=== PATIENT | male | born 1970 | race Caucasian/White ===

== ENCOUNTER 2023-10-08 14:54 | Outpatient (CLI) | payer BC, SELFPAY ==
--- NOTE | 2023-10-08 15:00 | CT_ITS ---
Patient: LAURIE SEGURA Facility:?[facility] Patient ID:?[id number] Site Patient ID:?[id number]. Site :?[id number] Study:?CT-Sinus W/O-10/08/2023 3:17:05 PM Ordering Physician:SONAM Final Report: INDICATION: Chronic sinusitis. TECHNIQUE: Noncontrast CT images of the paranasal sinuses. COMPARISON: None. FINDINGS: Postsurgical changes of endoscopic sinus surgery including bilateral maxillary antrostomy, bilateral uncinectomy, and bilateral partial ethmoidectomy. No air- fluid levels to suggest acute sinusitis. Mild to moderate lobulated mucosal thickening within the maxillary sinuses. The right maxillary sinus is hypoplastic. The maxillary sinus outflow tracts are patent. Severe opacification of the frontal recesses. There is otherwise mild mucosal thickening in the frontal sinuses. Moderate mucosal thickening in the residual ethmoid air cells. Mild mucosal thickening in the sphenoid sinuses. The sphenoethmoidal recesses are opacified. There is 5 mm rightward nasal septal deviation. Tubular opacities within the mid to superior nasal cavity bilaterally, larger on the left. The mastoid air cells are clear. IMPRESSION 1. Tubular opacities within the mid to superior nasal cavity bilaterally, larger on the left. Findings are concerning for underlying polyposis. Direct visualization is recommended for further assessment. 2. Severe opacification of the frontal recesses. There is otherwise mild to moderate paranasal sinus mucosal disease. 3. Rightward nasal septal deviation. Please note that all CT scans at this facility use dose modulation, iterative reconstruction, and/or weight-based dosing when appropriate to reduce radiation dose to as low as reasonably achievable. Dictated by Moiz Gastelum MD @ 10/10/2023 6:43:05 AM Signed by:?Moiz Gastelum MD @10/10/2023 6:43:05 AM (Electronic Signature)
== END 2023-10-08 14:55 | disposition home or self-care (01) ==
LOC: CT 14:57
PROVIDERS: Visit Provider Otolaryngology
DX: J32.9 Chronic sinusitis, unspecified (principal); J34.2 Deviated nasal septum
CPT/HCPCS: 70486

== ENCOUNTER 2024-05-06 10:01 | Day surgery (SDC) | payer BC, SELFPAY ==
[2024-05-06] VITALS (13 sets, daily range): BP systolic 122–148; BP diastolic 82–95; PULSE 55–70; RESP 16–20; TEMP 36.3–36.8; O2SAT 92–98; BMI 23.5
[2024-05-06] MEDS: LACTATED RINGERS 1000 ML 1,000 ML 100 ML IV (10:15)
[2024-05-06] MEDS: OXYMETAZOLINE 0.05% NASAL SPRAY 2 SPRAY NOSTRIL-B (10:50)
[2024-05-06] MEDS: SODIUM CHLORIDE 0.9 % (FLUSH) 10 ML SYRINGE IVF (10:51)
[2024-05-06] MEDS: BUPIVACAINE 0.5%/EPINEPHRINE 0.9 MG (30.9 ML) INJECTION (11:54)
[2024-05-06] MEDS: COCAINE HCL 4 % 4 ML SOLUTION NOSTRIL-B (11:54)
[2024-05-06] MEDS: MUPIROCIN 1 GM PACKET 1 APPLIC TOPICAL (11:54)
[2024-05-06] MEDS: AYR SALINE NASAL GEL 1 APPLIC NOSTRIL-B (11:56)
--- NOTE | 2024-05-06 12:24 | W.ANESCHARGE ---
Anesthesia Charges Start Date/Time Anesthesia Start Date: 05/06/24 Anesthesia Start Time: 11:28 Stop Date/Time Anesthesia Stop Date: 05/06/24 Anesthesia Stop Time: 12:23
--- NOTE | 2024-05-06 12:27 | SUR.PHASEI ---
Patient came to PACU awake, denies pain and nausea.
--- NOTE | 2024-05-06 12:33 | W.ANESCHARGE ---
Anesthesia Charges Start Date/Time Anesthesia Start Date: 05/06/24 Anesthesia Start Time: 11:28 Stop Date/Time Anesthesia Stop Date: 05/06/24 Anesthesia Stop Time: 12:23
--- NOTE | 2024-05-06 12:41 | SUR.PHASEI ---
Patient awake and denying ice chips, remains comfortable, Patient meets anesthesia discharge criteria from PACU
--- NOTE | 2024-05-06 13:11 | W.PM.ENTPROC ---
Procedure Note Date of procedure: 05/06/24 Procedure: Preop diagnosis bilateral nasal polyposis, deviated septum, nasal obstruction, inferior turbinate hypertrophy Postoperative diagnosis same Procedure endoscopic bilateral nasal polypectomy, septoplasty, submucous partial resection inferior turbinates bilateral Under general tracheal anesthesia patient was prepped and draped in usual fashion the nose decongested and injected. A right hemitransfixion incision was made left anterior posterior tunnels were created. A vertical incision was made through the cartilage and a right posterior tunnel created. The posterior deflected portions of septal bone resected a large piece trimmed returned to intraseptal space. The hemitransfixion was then closed with 2 4-0 chromic sutures. A stab incision was made in the anterior of the right inferior turbinate a tunnel created with a Germania dissector. The belkis bone was outfractured and a conservative out submucous resection performed with Beverley forceps. The Coblation Wand was used for hemostasis and to cauterize intramurally along the inferior 10%. This was repeated on the left side in identical fashion. The remainder procedure it was done with the available use of a 0 degree endoscope. There were several polyps attached to left middle turbinate that were resected and 1 in the middle meatus was also resected. On the right side they were more in the middle meatal region and smaller. These were also resected and labeled separately and sent to pathology. Silastic stents were secured with 3-0 nylon on either side the septum Merocel packing placed. The patient procedure was taken recovery in satisfactory condition blood loss less than 10 mL. Surgeon: Migel Barkley MD
[2024-05-06] MEDS: ACETAMINOPHEN 325 MG TABLET 650 MG PO (13:15)
[2024-05-06] MEDS: IBUPROFEN 400 MG TABLET PO (13:15)
== END 2024-05-06 14:35 | disposition home or self-care (01) ==
LOC: OR 10:02
PROVIDERS: Visit Provider Otolaryngology
PROC: (CPT 31231; principal; 2024-05-06 11:45)
DX: J34.2 Deviated nasal septum (principal); J34.3 Hypertrophy of nasal turbinates; J33.0 Polyp of nasal cavity
CPT/HCPCS: 30520; 30140; 31237; 00160; 88304; A9270; J1100; J2250; J2405; J2704; J3010; J7120